=== PATIENT | male | born 1990 | race Caucasian/White ===

== ENCOUNTER 2021-11-30 07:48 | Outpatient (CLI) | payer OTHER | END 2021-11-30 07:52 | disposition home or self-care (01) | LOC: SONOGRAMA 07:48 | DX: R74.01 Elevation of levels of liver transaminase levels (principal) ==

== ENCOUNTER 2023-01-07 16:44 | Emergency (ER) | payer OTHER ==
[~2023-01-07] VITALS: Ht 165.1 cm; Wt 63.5 kg
== END 2023-01-07 19:13 | disposition home or self-care (01) ==
LOC: ER 16:44
DX: S93.492A Sprain of other ligament of left ankle, initial encounter (principal); W19.XXXA Unspecified fall, initial encounter; Y93.89 Activity, other specified; Y92.89 Other specified places as the place of occurrence of the external cause; Y99.8 Other external cause status